=== PATIENT | female | born 1955 | race Caucasian/White ===

== ENCOUNTER 2016-05-18 11:12 | Outpatient (CLI) | payer OTHER ==
[2015-08-20 06:26] VITALS: BP 105/55
--- NOTE | 2016-05-18 15:16 | Diagnostic Imaging Report ---
[facility] [address] [facility].[address] [place] [address] [place], [place]. [address] Report Submission Date: May 18, 2016 1:13:55 PM MULTIMEDIA TECHNICIAN Patient Study Name: COSME FIELD Date: May 18, 2016 11:23:29 AM MULTIMEDIA TECHNICIAN Modality Type: CR Gender: F Description: LOWER EXTREMITY : 57 Institution: [facility] Physician: RICHARD DIOP Left tibia fibula two views HISTORY: Lower leg nodule and pain for 3 weeks FINDINGS: Total knee arthroplasty is observed in anatomic alignment. The tibia and fibula are otherwise normal without fracture, dislocation, or focal bone lesion. IMPRESSION: Left knee arthroplasty in anatomic alignment. Electronically signed on May 18, 2016 1:13:55 PM MULTIMEDIA TECHNICIAN by: Mian WU
== END 2016-05-18 11:15 ==
LOC: RAD 11:12
PROVIDERS: ATTEND Family Medicine
DX: R22.42 Localized swelling, mass and lump, left lower limb (principal)
CPT/HCPCS: 73590

== ENCOUNTER 2016-05-23 09:00 | Outpatient (CLI) | payer OTHER ==
[2015-08-20 06:26] VITALS: BP 105/55
--- NOTE | 2016-05-23 16:53 | Diagnostic Imaging Report ---
[facility] [address] [facility].[address] [address] Report Submission Date: May 23, 2016 3:40:27 PM CANDLE MAKING SUPERVISOR Patient Study Name: COSME FIELD Date: May 23, 2016 9:18:28 AM CANDLE MAKING SUPERVISOR Modality Type: US Gender: F Description: US EXT NON VASC LIMITED : 57 Institution: [facility] Physician: RICHARD Champagne ultrasound examination left leg History: PALPABLE LUMP MED LEFT TREJO X 2 WEEKS Grayscale and color Doppler images of the area of concern are submitted Findings: There is thickening and heterogeneity of the soft tissues in the area of concern / lump in the left medial trejo as compared to the right. A few scattered interspersed cystic areas seen in this area. This complex slightly hyperechoic heterogeneous area measures approximately 3.3 x 5.3 x 1.1 cm, no blood flow is seen. Impression: 1. Thickening and heterogeneity of the soft tissues of the left medial trejo in the area of the lump, measures approximately 3.3 x 5.3 x 1.1 cm. 2. This area of concern is slightly hyperechoic with few scattered interspersed cystic areas, no vascularity seen. Etiology is indeterminate. Differential diagnosis includes hematoma if there is history of trauma, subcutaneous lipoma in the appropriate context. MR imaging may be done. Electronically signed on May 23, 2016 3:40:27 PM CANDLE MAKING SUPERVISOR by: Meri WU
== END 2016-05-23 09:02 ==
LOC: RAD 09:00
PROVIDERS: ATTEND Family Medicine
DX: R22.42 Localized swelling, mass and lump, left lower limb (principal)
CPT/HCPCS: 76882

== ENCOUNTER 2016-08-22 09:51 | Outpatient (CLI) | payer OTHER ==
[2015-08-20 06:26] VITALS: BP 105/55
[2016-08-22 10:45] LABS: eGFR (African) > 60; eGFR (Non-African) > 60
== END 2016-08-22 09:52 ==
LOC: LAB 09:51
PROVIDERS: ATTEND Family Medicine
DX: E11.51 Type 2 diabetes mellitus with diabetic peripheral angiopathy without gangrene (principal)
CPT/HCPCS: 36415; 80053; 80061; 82043; 83036

== ENCOUNTER 2016-10-10 13:21 | Outpatient (CLI) | payer OTHER ==
[2015-08-20 06:26] VITALS: BP 105/55
[2016-10-10 14:03] LABS: BASOPHILS % 0.9 (0.0-1.5); EOSINOPHILS % 0.3 % (0.0-6.8); MEAN CORPUSCULAR HEMOGLOBIN 27.5 pg (28.0-34.0); MEAN CORPUSCULAR VOLUME 85.3 fl (80.0-100.0); MONOCYTES % 6.5 % (0.0-11.0); NEUTROPHILS # 3.9 # k/uL (1.4-7.7)
[2016-10-10 14:30] LABS: eGFR (African) > 60; eGFR (Non-African) > 60
--- NOTE | 2016-10-10 17:26 | Diagnostic Imaging Report ---
[facility] [address] [facility].[address] [address] Report Submission Date: Oct 10, 2016 2:29:23 PM CDT Patient Study Name: COSME FIELD Date: Oct 10, 2016 1:32:05 PM CDT Modality Type: US Gender: F Description: US ABD LIMITED : 57 Institution: [facility] [place] [facility] Physician: JADON RAMOS - NIA Examination: Ultrasound gallbladder History: Epigastric discomfort Findings: Sonographic evaluation of the right upper quadrant demonstrates the gallbladder with a single stone near the fundus measuring 4 mm diameter. Gallbladder wall measures 1.3 mm. Common bile duct measures 3 mm. No intrahepatic biliary dilation. Liver demonstrates mild increased echogenicity. No mass or cyst. Normal flow on color analysis. Right kidney measures 10.2 cm in length. No cortical mass or cyst. No hydronephrosis. Pancreatic region without gross irregularity. Impression: Single gallstone. No evidence for obstruction. Mild fatty infiltration of liver Electronically signed on Oct 10, 2016 2:29:23 PM CDT by: Edi WU
== END 2016-10-10 13:27 | disposition home or self-care (01) ==
LOC: RAD 13:21
PROVIDERS: ATTEND Family Medicine
DX: R10.11 Right upper quadrant pain (principal)
CPT/HCPCS: 36415; 76705; 80053; 85025

== ENCOUNTER 2016-11-27 10:10 | Outpatient (CLI) | payer OTHER ==
[2015-08-20 06:26] VITALS: BP 105/55
== END 2016-11-27 10:11 ==
LOC: LAB 10:10
PROVIDERS: ATTEND Family Medicine
DX: E11.9 Type 2 diabetes mellitus without complications (principal)
CPT/HCPCS: 36415; 83036

== ENCOUNTER 2016-12-27 12:04 | Outpatient (CLI) | payer OTHER ==
[2015-08-20 06:26] VITALS: BP 105/55
--- NOTE | 2016-12-27 14:11 | Diagnostic Imaging Report ---
VIKAS URIBE [facility] [address] [facility].[address] [address] Report Submission Date: Dec 27, 2016 1:09:46 PM CDT Patient Study Name: COSME FIELD Date: Dec 27, 2016 12:06:00 PM CDT Modality Type: CR Gender: F Description: CHEST : 57 Institution: [facility] Physician: VIKAS URIBE Examination: PA and lateral chest. History: Evaluate lung rios. Comparison exam: None provided Findings: PA lateral chest demonstrate a normal cardiac and mediastinal silhouette. Hazy infiltrate involving the left lung lingular region. No effusion. No blunting of the costophrenic margins. Spinal stimulator. Osseous structures are appropriate for age. Impression: Left lung lingular infiltrate. No effusion. Electronically signed on Dec 27, 2016 1:09:46 PM CDT by: Edi WU
== END 2016-12-27 12:05 ==
LOC: RAD 12:04
PROVIDERS: ATTEND Family Medicine
DX: J18.1 Lobar pneumonia, unspecified organism (principal)
CPT/HCPCS: 71020

== ENCOUNTER 2017-01-04 08:12 | Outpatient (CLI) | payer OTHER ==
[2015-08-20 06:26] VITALS: BP 105/55
== END 2017-01-04 08:13 ==
LOC: OUT 08:12
PROVIDERS: ATTEND Colon & Rectal Surgery
DX: K80.20 Calculus of gallbladder without cholecystitis without obstruction (principal)
CPT/HCPCS: G0463

== ENCOUNTER 2017-01-25 07:04 | Day surgery (SDC) | payer OTHER ==
[2015-08-20 06:26] VITALS: BP 105/55
[2017-01-25 07:42] LABS: eGFR (African) > 60; eGFR (Non-African) > 60
[2017-01-25] MEDS ORDERED: NEOSTIGMINE METHYLSULFATE 1 MG/ML VIAL ONE (08:00)
[2017-01-25] MEDS ORDERED: NORMAL SALINE 1,000 ML IV.SOLN IV ONE (08:00)
[2017-01-25] MEDS ORDERED: ACETAMINOPHEN 1,000 MG/100 ML INJ IV ONE (08:00)
[2017-01-25] MEDS ORDERED: LIDOCAINE HCL/PF 2% 100 MG/5 ML VIAL IJ ONE (08:00)
[2017-01-25] MEDS ORDERED: PROPOFOL 200 MG/20 ML VIAL IV ONE (08:00)
[2017-01-25] MEDS ORDERED: fentaNYL CITRATE/PF 100 MCG/ 2ML AMP ONE (08:00)
[2017-01-25] MEDS ORDERED: ROCURONIUM BROMIDE 10 MG/ML 5ML VIAL ONE (08:00)
[2017-01-25] MEDS ORDERED: GLYCOPYRROLATE 0.2 MG/1 ML 1 ML ONE (08:00)
[2017-01-25] MEDS ORDERED: SEVOFLURANE 250 ML LIQUID IH ONE (08:00)
[2017-01-25] MEDS ORDERED: LACTATED RINGERS 1,000 ML IV.SOLN IV ONE (08:00)
[2017-01-25] MEDS ORDERED: BUPIVACAINE HCL/EPINEPHRINE/PF 0.25% VIAL IM ONE (08:00)
[2017-01-25] MEDS ORDERED: ONDANSETRON HCL/PF 4 MG/ 2ML VIAL ONE (08:00)
[2017-01-25] MEDS ORDERED: DEXAMETHASONE SOD PHOS 4 MG/ML VIAL ONE (08:00)
[2017-01-25] MEDS ORDERED: ceFAZolin SODIUM 1 GM VIAL ONE (08:00)
[2017-01-25] MEDS ORDERED: SALINE FLUSH 10 ML DISP.SYRIN IVF ONE (08:00)
[2017-01-25] MEDS ORDERED: MORPHINE SULFATE 2 MG/ML PREFILLED SYR ONE (08:00)
--- NOTE | 2017-01-25 13:02 | Operative Note ---
SURGEON: Hansel Toth MD ANESTHESIA: General. ESTIMATED BLOOD LOSS: 25 mL. COMPLICATIONS: None. PREOPERATIVE DIAGNOSIS: Symptomatic cholelithiasis. POSTOPERATIVE DIAGNOSIS: Symptomatic cholelithiasis. PROCEDURE PERFORMED: Laparoscopic cholecystectomy. INDICATIONS FOR PROCEDURE: This is a 61-year-old woman who has had right upper quadrant pain intermittently. She was found to have gallstones on an ultrasound. DESCRIPTION OF PROCEDURE: Patient was brought to the operating room and general anesthesia was achieved. The abdomen was prepped and draped. A vertical incision was made at the umbilicus and carried to the subcutaneous tissue. The fascia was divided in the midline. The peritoneum was entered. The Brennan trocar was inserted. The abdomen was insufflated. A 5 mm epigastric port and two 5 mm right upper quadrant ports were placed. The fundus was grasped and retracted cephalad. The infundibulum was retracted laterally. There was no acute inflammation. The cystic duct and artery were dissected from their surrounding tissues. The anatomy was very clear. Both the duct and artery were doubly clipped and divided. The gallbladder was removed from its bed with electrocautery. She had a very fatty and stiff liver. There was some oozing from the liver bed that was controlled with electrocautery and a clip. Due to the condition of her liver, however, Surgicel was placed. There was absolutely no bleeding at the close of the procedure. The ports were all removed. The sites were hemostatic. The fascia of the umbilical port was closed with 0-Vicryl sutures. The skin involved incisions were closed with 4-0 Vicryl subcuticular sutures. Steri-Strips and dressings were placed over the incisions. The patient was awakened and extubated and taken to the recovery room in good condition. FINDINGS: No acute inflammation. cc: Dr. Tracey WU
== END 2017-01-25 07:05 ==
LOC: OPSURG 07:04
PROVIDERS: ATTEND Colon & Rectal Surgery
DX: K81.1 Chronic cholecystitis (principal)
CPT/HCPCS: 36415; 80053; 88304; J0690; J1100; J2001; J2270; J2405; J2704; J2710; J3010; J3490; J7030; J7120; 47562; S1016

== ENCOUNTER 2017-02-15 10:37 | Outpatient (CLI) | payer OTHER ==
[2015-08-20 06:26] VITALS: BP 105/55
== END 2017-02-15 10:40 ==
LOC: OUT 10:37
PROVIDERS: ATTEND Colon & Rectal Surgery
DX: Z09 Encounter for follow-up examination after completed treatment for conditions other than malignant neoplasm (principal); Z90.49 Acquired absence of other specified parts of digestive tract
CPT/HCPCS: G0463

== ENCOUNTER 2017-02-26 10:35 | Outpatient (CLI) | payer OTHER ==
[2015-08-20 06:26] VITALS: BP 105/55
--- NOTE | 2017-02-26 14:11 | Diagnostic Imaging Report ---
JADON RAMOS - NIA [facility] [address] [facility] [address] [place] [address]. [address] Report Submission Date: Feb 26, 2017 11:06:44 AM HOG CUTTER Patient Study Name: COSME FIELD Date: Feb 26, 2017 10:50:46 AM HOG CUTTER Modality Type: CR Gender: F Description: PELVIS : 57 Institution: [facility] Physician: JADON RAMOS - NIA Examination: Plain film hip History: Hip discomfort Comparison exams: None provided Findings: 2 views of the hip demonstrates joint space narrowing and significant osteophyte formation. No fracture no dislocation. No soft tissue abnormality. Impression: Advanced degenerative changes without fracture or dislocation. Electronically signed on Feb 26, 2017 11:06:44 AM HOG CUTTER by: Edi WU
== END 2017-02-26 10:36 ==
LOC: LAB 10:35
PROVIDERS: ATTEND Family Medicine
DX: M25.552 Pain in left hip (principal); E11.51 Type 2 diabetes mellitus with diabetic peripheral angiopathy without gangrene
CPT/HCPCS: 36415; 83036

== ENCOUNTER 2017-03-22 10:10 | Outpatient (CLI) | payer OTHER ==
[2015-08-20 06:26] VITALS: BP 105/55
== END 2017-03-22 10:11 ==
LOC: LABRHC 10:10
PROVIDERS: ATTEND Family Medicine
DX: R30.0 Dysuria (principal)
CPT/HCPCS: 87086

== ENCOUNTER 2017-05-31 10:17 | Outpatient (CLI) | payer OTHER ==
[2015-08-20 06:26] VITALS: BP 105/55
== END 2017-05-31 10:18 ==
LOC: LAB 10:17
PROVIDERS: ATTEND Family Medicine
DX: E11.51 Type 2 diabetes mellitus with diabetic peripheral angiopathy without gangrene (principal)
CPT/HCPCS: 36415; 83036

== ENCOUNTER 2017-11-05 10:03 | Outpatient (CLI) | payer OTHER ==
[2015-08-20 06:26] VITALS: BP 105/55
--- NOTE | 2017-11-05 13:12 | Diagnostic Imaging Report ---
JADON RAMOS [facility] [address] [facility] [address] [place], [place]. [address] Report Submission Date: Nov 05, 2017 12:04:57 PM CDT Patient Study Name: DAVID MARTINEZ Date: Nov 05, 2017 11:24:39 AM CDT Modality Type: DX Gender: F Description: CHEST : [birth year] Institution: [facility] Physician: JADON RAMOS PA and lateral chest History: Follow-up right lung abnormality PA and lateral chest dated November 05, 2017 is compared with prior radiograph and chest CT from October 30, 2017 There is evidence for old granulomatous disease. The masslike opacity previously noted at the right upper lobe does appear less dense on today's radiograph, possibly a pneumonic infiltrate which is improving. Follow-up to complete resolution would be recommended. There is no pleural effusion. The cardiomediastinal silhouette is unchanged. Impression: The masslike opacity previously noted at the right upper lobe is now less dense when compared with prior studies. Therefore, this finding may represent an improving infectious infiltrate. However, follow-up to complete resolution would be recommended. Old granulomatous disease. Electronically signed on Nov 05, 2017 12:04:57 PM CDT by: Erica WU
--- NOTE | 2017-11-06 12:03 | Diagnostic Imaging Report ---
JADON RAMOS [facility] [address] [facility] [address] [place] [address]. [address] Report Submission Date: Nov 05, 2017 10:49:15 AM CDT Patient Study Name: COSME FIELD Date: Nov 05, 2017 10:16:05 AM CDT Modality Type: DX Gender: F Description: SPINE : 57 Institution: [facility] Physician: JADON RAMOS Lumbar spine History: Low back pain AP and lateral projections of the lumbar spine demonstrate mild levo otary scoliosis of the lumbar spine. Neurostimulating leads project over the upper lumbar and lower thoracic spine. There is extensive multilevel facet arthropathy but no significant spondylolisthesis. Vertebral body height and intervertebral disc space height is maintained throughout the lumbar spine. There is mild disc space narrowing with large anterior marginal osteophytes at T11/T12 and T12/L1. Impression: Mild levorotary scoliosis of the lumbar spine. Extensive multilevel facet arthropathy. Mild disc space narrowing with large anterior marginal osteophytes at T11/T12 and T12/L1. Electronically signed on Nov 05, 2017 10:49:15 AM CDT by: Erica WU
--- NOTE | 2017-11-06 14:06 | Diagnostic Imaging Report ---
JADON RAMOS [facility] [address] [facility] [address] [place] [address]. [address] Report Submission Date: Nov 05, 2017 10:49:15 AM CDT Patient Study Name: COSME FIELD Date: Nov 05, 2017 10:16:05 AM CDT Modality Type: DX Gender: F Description: SPINE : 57 Institution: [facility] Physician: JADON RAMOS Lumbar spine History: Low back pain AP and lateral projections of the lumbar spine demonstrate mild levo otary scoliosis of the lumbar spine. Neurostimulating leads project over the upper lumbar and lower thoracic spine. There is extensive multilevel facet arthropathy but no significant spondylolisthesis. Vertebral body height and intervertebral disc space height is maintained throughout the lumbar spine. There is mild disc space narrowing with large anterior marginal osteophytes at T11/T12 and T12/L1. Impression: Mild levorotary scoliosis of the lumbar spine. Extensive multilevel facet arthropathy. Mild disc space narrowing with large anterior marginal osteophytes at T11/T12 and T12/L1. Electronically signed on Nov 05, 2017 10:49:15 AM CDT by: Erica WU
== END 2017-11-05 10:42 ==
LOC: LAB 10:03
PROVIDERS: ATTEND Family Medicine
DX: R30.0 Dysuria (principal); M54.41 Lumbago with sciatica, right side; E11.9 Type 2 diabetes mellitus without complications
CPT/HCPCS: 36415; 72100; 83036; 87086

== ENCOUNTER 2017-11-27 16:12 | Outpatient (CLI) | payer OTHER ==
[2015-08-20 06:26] VITALS: BP 105/55
[2017-11-27 16:50] LABS: BASOPHILS % 0.4 (0.0-1.5); EOSINOPHILS % 0.1 % (0.0-6.8); MEAN CORPUSCULAR HEMOGLOBIN 27.7 pg (28.0-34.0); MONOCYTES % 7.1 % (0.0-11.0)
--- NOTE | 2017-11-27 18:34 | Diagnostic Imaging Report ---
JADON RAMOS [facility] [address] [facility] [address] [place], [place]. [address] Report Submission Date: Nov 27, 2017 6:22:26 PM CDT Patient Study Name: COSME FIELD Date: Nov 27, 2017 5:33:34 PM CDT Modality Type: CT\SR Gender: F Description: CT ABD PELVIS W/ CON : 57 Institution: [facility] Physician: JADON RAMOS CT abdomen and pelvis with intravenous contrast HISTORY Abdominal pain, fever. TECHNIQUE Images through the abdomen and pelvis were obtained following intravenous. FINDINGS There is minimal right lower lobe atelectasis. There is fatty infiltration of the liver. The patient is status post cholecystectomy. There is no biliary duct dilatation. The portal vein enhances normally. The spleen, right kidney and bilateral adrenal glands are normal. There is fatty replacement of the pancreas. There is a 9 mm nonobstructing left renal calculus. There is no hydronephrosis, hydroureter, free intraperitoneal air or fluid. There is no bowel obstruction. There are a few colonic diverticula. There is significant inflammatory change in the proximal transverse colon. Appearance does not suggest diverticulitis. Other etiologies of colitis be considered. Malignancy is less likely. Small mesenteric lymph nodes are present. There is no adenopathy. The aorta enhances normally. The uterus is grossly normal. Degenerative changes are noted in the lumbar spine. Spinal stimulator is present. Small umbilical hernia is present and contains unobstructed loop of small bowel. IMPRESSION Fatty infiltration of the liver. Left nephrolithiasis but no urinary obstruction. Significant inflammatory change in the proximal transverse colon, consistent with colitis of unclear etiology. Fatty replacement of the pancreas. Umbilical hernia with small bowel herniation. Degenerative changes of the lumbar spine. Electronically signed on Nov 27, 2017 6:22:26 PM CDT by: Gokul WU
[2017-11-28 02:32] LABS: TOTAL PROTEIN 7.5 g/dL (6.0-8.5)
== END 2017-11-27 16:13 ==
LOC: LAB 16:12
PROVIDERS: ATTEND Family Medicine
DX: R10.84 Generalized abdominal pain (principal)
CPT/HCPCS: 36415; 74177; 80053; 85025

== ENCOUNTER 2018-02-04 09:05 | Outpatient (CLI) | payer OTHER ==
[2015-08-20 06:26] VITALS: BP 105/55
[2018-02-04 10:30] LABS: eGFR (Non-African) > 60
== END 2018-02-04 09:07 ==
LOC: LAB 09:05
PROVIDERS: ATTEND Family Medicine
DX: E11.9 Type 2 diabetes mellitus without complications (principal)
CPT/HCPCS: 80053; 80061; 83036

== ENCOUNTER 2018-05-16 14:20 | Outpatient (CLI) | payer OTHER ==
[2015-08-20 06:26] VITALS: BP 105/55
[2018-05-16 15:36] LABS: eGFR (Non-African) > 60
== END 2018-05-16 14:22 ==
LOC: LAB 14:20
PROVIDERS: ATTEND Family Medicine
DX: E11.51 Type 2 diabetes mellitus with diabetic peripheral angiopathy without gangrene (principal)
CPT/HCPCS: 36415; 80053; 83036

== ENCOUNTER 2018-05-23 08:53 | Outpatient (CLI) | payer OTHER ==
[2015-08-20 06:26] VITALS: BP 105/55
--- NOTE | 2018-05-27 10:50 | OP Clinic Progress Note ---
DEBRA FIELD I. ADMISSION#: [id number] : 1955 DATE OF VISIT: 05/23/2018 SUBJECTIVE: Debra Dunn is a 63-year-old female who presented to the clinic today for a steroid injection due to consistent pain in the left third intermetatarsal region. We saw her earlier this week in clinic and based on clinical exam I found that she seemed to have what would be called a Mortons neuroma. She also may be dealing with a form of plantar plate injury in the same area of the third and fourth toes. The patient was placed in a BFO AliMed insert for both shoes with a Dancers pad to try and spread the metatarsal heads. The patient states that it is causing a little bit of arch pain even though she is progressing into the use of them gradually. She does not admit any other major problems outside of some plantar fascia pain on the left as well as some lateral ankle ligament pain, left more than right. The patient does not admit to any fevers, chills, nausea, vomiting, shortness of breath or chest pain at this time. OBJECTIVE: Vitals: Temperature 97.8 degrees Fahrenheit, heart rate 104, blood pressure 143/92, pain 6/10. Vascular: DP and PT pulses 2+, left foot. Capillary refill time is less than 3 seconds to the toes, left foot. There is mild edema perhaps around the ankle of the left lower extremity. Dermatologic: There is no erythema or open lesions or hyperkeratosis noted, or other skin lesions, left foot. Musculoskeletal: There is pain to palpation noted to the area of the third intermetatarsal space, left foot. From previous exam there is pain with [id number] squeeze of the metatarsal heads, left foot, with pressure on the third intermetatarsal space from a plantar direction. There is also positive Lachmans sign on the third and fourth toes, left foot from previous exam. The patient also has pain on palpation to the ATFL and CFL area and a what feels to be lipid deposit located bilaterally along the distal anterior aspect from the lateral malleolus. The patient has moderate pain on palpation in this ligament area bilaterally but left more than right. It sounds like the patient has had this for awhile. There is some digital contraction noted especially at the third and fourth toes bilaterally. They are pulled in an up and divergent direction. Pain to palpation noted at the plantar medial calcaneal tubercle, left foot. Neurologic: Light touch sensation is intact to the toes bilaterally. There is mild numbness noted in the third interdigital space left foot compared to other areas of the skin. ASSESSMENT AND PLAN: 1. Mortons neuroma, left foot. 2. Plantar fasciitis, left foot. PROCEDURE #1: Consent was obtained after discussing the risks and benefits of a steroid injection to the left third intermetatarsal plantar space from a dorsal approach. The patient understood the risks and benefits that include but are not limited to bleeding and infection and has agreed both with written and verbal consent to go forward with this small procedure. An alcohol swab was utilized to clean the dorsal third intermetatarsal space of the skin and an injection consisting of 1 mL of 2% Xylocaine plain, 1 mL of 0.5% bupivacaine plain and 0.5 mL of dexamethasone 4 mg/mL were injected into the plantar space of the third intermetatarsal head region. This was palpated to fill up that space with my thumb on the plantar side. This signified placing it in an appropriate place. The patient had a Band-Aid applied after hemostasis was achieved with pressure dorsally. The patient tolerated the procedure well. We instructed the patient and demonstrated appropriate stretching exercises to be done 3 or 4 times a day for the plantar fasciitis. The patient also was given a handout to show those stretches. We also discussed the importance of keeping an eye on the lateral ankle ligaments bilaterally. We will see if these improve at all after working on this neuroma as she may be walking abnormally due to the pain there. If there is continued pain we may need to work up x-rays and then an MRI depending on what is going on. The patient will return to clinic in 3 weeks in the health clinic next door and will call to make that appointment for follow-up. We will follow up on the injection and the BFO AliMed inserts as well as the plantar fasciitis left heel and discuss lateral ankle ligaments bilaterally, left more than right. Heike HandPAlee. (Dictated/Not Signed) Alison Job#: [id number] MTDD
== END 2018-05-23 09:30 ==
LOC: POD 08:53
PROVIDERS: ATTEND Podiatrist Foot & Ankle Surgery
DX: G57.82 Other specified mononeuropathies of left lower limb (principal); M72.2 Plantar fascial fibromatosis
CPT/HCPCS: 64450; J1100; J2001; J3490

== ENCOUNTER 2018-09-12 09:23 | Outpatient (CLI) | payer OTHER ==
[2015-08-20 06:26] VITALS: BP 105/55
== END 2018-09-12 09:25 ==
LOC: LAB 09:23
PROVIDERS: ATTEND Family Medicine
DX: E03.9 Hypothyroidism, unspecified (principal); E11.51 Type 2 diabetes mellitus with diabetic peripheral angiopathy without gangrene
CPT/HCPCS: 36415; 83036; 84443

== ENCOUNTER 2018-11-05 07:09 | Emergency (ER) | payer OTHER ==
--- NOTE | 2018-11-05 07:17 | ED Physician Documentation ---
General Adult - HISTORIAN Historian: patient - HPI Stated Complaint: pneumonia Chief Complaint: Cough/ Upper Respiratory Onset: days ago (6) Timing: still present Severity: moderate Further Comments: yes (She reports she was dx with pneumonia last Sunday and started Cipro per Dr Vega. She denies any improvement in symptoms and starting Sunday she had nausea and vomiting. She has continued to run a fever. She is not able to hold down this am's dose of meds. She has no rash. No other complaints. She is coughing and she feels nausated) - ROS CONST: fever, recent illness CVS/RESP: shortness of breath, cough GI/: vomiting, nausea MS/SKIN/LYMPH: denies: rash NEURO/PSYCH: headache - PAST HX Past History: A-Fib Immunizations: UTD Allergies/Adverse Reactions: Allergies Allergy/AdvReac Type Severity Reaction Status Date / Time oxycodone HCl [From Tylox] Allergy Verified 11/05/18 07:48 - SOCIAL HX Smoking History: non-smoker Alcohol Use: none Drug Use: none - FAMILY HX Family History: No - VITAL SIGNS Vital Signs: Vital Signs Temp Pulse Resp BP Pulse Ox 105/55 08/20/15 10:12 - REVIEWED ASSESSMENTS Nursing Assessment Reviewed: Yes Vitals Reviewed: Yes Progress - Progress Progress: 0755: discussed with pt blood sugar number DG 0850: Discussed case with Dr Kruger - will transfer to [place] per pt request - she is feeling "weak but ok" DG 0930: awaiting labs for CT DG 1000: Pt is noted to have dark blood appearing contents with her sputum in CT DG 1035: Luna at [facility] contacted about transfer DG 1037: Dr Adamson accepting DG - aware no CT results at this time DG 1115: is wanting to transfer himself. He is aware of safety reasons DG ED Results Lab/Radiology - Radiology Radiology Impressions: Portable chest History: Pneumonia Portable chest dated November 05, 2018 is compared with December 27, 2016. The cardiomediastinal silhouette is normal. Neurostimulator leads project at the midthoracic spine. Pulmonary vascularity is normal. There is no confluent infiltrate or pleural effusion. Impression: No active disease. Electronically signed on Nov 05, 2018 7:54:35 AM CDT by: Erica Sewell General Adult Physical Exam - PHYSICAL EXAM GENERAL APPEARANCE: mild distress EENT: eye inspection normal, pharynx normal, dry mucous membranes NECK: normal inspection RESPIRATORY: chest non-tender, wheezes CVS: reg rate & rhythm, heart sounds normal ABDOMEN: soft, normal bowel sounds BACK: normal inspection, no CVA tenderness SKIN: warm/dry, normal color EXTREMITIES: non-tender, normal range of motion, no evidence of injury, no edema NEURO: oriented X3 Discharge Clincal Impression: Nausea & vomiting Qualifiers: Vomiting type: unspecified Vomiting Intractability: unspecified Qualified Code(s): R11.2 - Nausea with vomiting, unspecified Referrals: Tracey Kruger MD [Primary Care Provider] - 2 Days Comments: Discussed case with Dr Kruger and pt will be transferred to [place] due to ABG values DG Condition: Critical Disposition: 02 XFER SHT-TRM HOSP Decision to Admit: NO Date of Decison to Admit: 11/05/18 Decision Time: 10:38
[2018-11-05] MEDS ORDERED: 0.9 % SODIUM CHLORIDE 1,000 ML IV ONE ×2 (07:30→08:56)
[2018-11-05] MEDS ORDERED: ONDANSETRON HCL/PF 4 MG/ 2ML VIAL IVP ONE (07:30)
[2018-11-05] MEDS ORDERED: ONDANSETRON HCL/PF 4 MG/ 2ML VIAL ONE (07:31)
--- NOTE | 2018-11-05 07:56 | Diagnostic Imaging Report ---
MACY ROBIN [facility] [address] [facility] [address] [place], [place]. [address] Report Submission Date: Nov 05, 2018 7:54:35 AM CDT Patient Study Name: COSME FIELD Date: Nov 05, 2018 7:28:17 AM CDT Modality Type: DX Gender: F Description: CHEST 1VIEW : 57 Institution: [facility] Physician: MACY ROBIN Portable chest History: Pneumonia Portable chest dated November 05, 2018 is compared with December 27, 2016. The cardiomediastinal silhouette is normal. Neurostimulator leads project at the midthoracic spine. Pulmonary vascularity is normal. There is no confluent infiltrate or pleural effusion. Impression: No active disease. Electronically signed on Nov 05, 2018 7:54:35 AM CDT by: Erica WU
[2018-11-05 07:58] LABS: eGFR (Non-African) 33
[2018-11-05 08:08] LABS: BASOPHILS % 0.7 % (0.0-1.5); NEUTROPHILS # 14.9 # k/uL (1.4-7.7)
[2018-11-05] MEDS ORDERED: PIPERACILLIN SODIUM/TAZOBACTAM 3.375 GM in 0.9 % SODIUM CHLORIDE 100 ML IV ONE (08:54)
[2018-11-05 09:34] LABS: eGFR (Non-African) 45
[2018-11-05] MEDS: INSULIN REGULAR, HUMAN 100 UNIT/ML 10ML VIAL IV ONE ×2 (09:40→10:35)
[2018-11-05] MEDS ORDERED: INSULIN REGULAR, HUMAN 100 UNIT/ML 10ML VIAL ONE (10:32)
--- NOTE | 2018-11-05 11:38 | Diagnostic Imaging Report ---
MACY ROBIN [facility] [address] [facility] [address] [place], [place]. [address] Report Submission Date: Nov 05, 2018 10:54:28 AM CDT Patient Study Name: COSME FIELD Date: Nov 05, 2018 9:55:00 AM CDT Modality Type: CT Gender: F Description: CT PE CHEST : 57 Institution: [facility] Physician: MACY ROBIN Exam: CT chest PE protocol. History: Shortness of breath. Elevated D-dimer. Axial images through the thorax after IV infusion of 94 cc Omnipaque 350 is submitted along with sagittal and coronal reformatted images. The previous study is unavailable for comparison. Patchy bilateral infiltrates are noted. No davon consolidation or effusions are identified. Heart size is normal. The thoracic aorta is of normal caliber and associated with atherosclerotic plaque. The mainstem pulmonary artery is of normal caliber. No intrinsic filling defects in the pulmonary arteries are identified. Degenerate changes in the thoracic spine are noted. No davon abnormality in the upper abdomen is noted. Impression: Patchy bilateral infiltrates. No intrinsic filling defects in the pulmonary arteries are identified. Electronically signed on Nov 05, 2018 10:54:28 AM CDT by: Krishan WU
[2018-11-05 11:51] VITALS: BP 112/46
[2018-11-06 06:43] LABS: APPEARANCE,URINE CLEAR (CLEAR); COLOR,URINE YELLOW (YELLOW); OCCULT BLOOD,URINE 1+ (NEGATIVE); PH URINE 5.5 (5.0 - 8.0); UROBILINOGEN URINE 0.2 Eu (0.2-1.0)
== END 2018-11-05 11:23 | disposition short-term general hospital (02) ==
LOC: ED 07:09
DX: R11.2 Nausea with vomiting, unspecified (principal)
CPT/HCPCS: 36600; 71045; 71275; 80053; 81002; 82803; 83605; 84484; 85025; 85379; 87040; 96372; 99283; 99284; J2405; J1815; J2543; J7030; Q9967; S1016

== ENCOUNTER 2018-12-11 10:06 | Outpatient (CLI) | payer OTHER ==
[2018-12-11 10:36] LABS: eGFR (Non-African) > 60
== END 2018-12-11 10:08 ==
LOC: LAB 10:06
PROVIDERS: ATTEND Family Medicine
DX: E11.51 Type 2 diabetes mellitus with diabetic peripheral angiopathy without gangrene (principal)
CPT/HCPCS: 36415; 80048

== ENCOUNTER 2019-01-22 10:59 | Outpatient (CLI) | payer OTHER | END 2019-01-22 12:11 | LOC: OUT 10:59 | PROVIDERS: ATTEND Family Medicine | DX: E11.51 Type 2 diabetes mellitus with diabetic peripheral angiopathy without gangrene (principal) | CPT/HCPCS: 97802 ==

== ENCOUNTER 2019-03-24 10:56 | Outpatient (CLI) | payer OTHER | END 2019-03-24 11:01 | LOC: LAB 10:56 | PROVIDERS: ATTEND Family Medicine | DX: E11.9 Type 2 diabetes mellitus without complications (principal) | CPT/HCPCS: 36415; 82043; 83036 ==